=== PATIENT | female | born 1995 | race Caucasian/White ===

== ENCOUNTER 2018-02-08 08:54 | Inpatient (IN) | payer OTHER ==
[~2018-02-08] VITALS: Ht 160 cm; Wt 63.5 kg
[2018-02-08 08:57] VITALS: Ht 160 cm; Wt 63.5 kg
[2018-02-08 10:19] LABS: CALCIUM 8.9 mg/dL (8.5-10.1); CARBON DIOXIDE 22.6 mmol/L (21-32); CHLORIDE SERUM 104 mmol/L (98-107); CREATININE SERUM 0.3 mg/dL (0.6-1.0); GFR1 > 60 mL/min; GLUCOSE SERUM 82 mg/dL (74-106); POTASSIUM SERUM 3.7 mmol/L (3.5-5.1); SODIUM SERUM 138 mmol/L (136-145)
[2018-02-08 10:23] LABS: ALBUMIN 3.7 g/dL (3.4-5.0); ALKALINE PHOSPHATASE 241 U/L (46-116); ALT/SGPT 37 U/L (14-59); AMYLASE 78 U/L (25-115); AST/SGOT 22 U/L (15-37); BILIRUBIN TOTAL 0.4 mg/dL (0.20-1.00); LIPASE 1057 IU/L (73-393); TOTAL PROTEIN, SERUM 8.2 g/dL (6.4-8.2)
[2018-02-08 11:08] LABS: BASOPHIL % 0.4 % (0-2); PLATELET COUNT 206 x10^3mcL (130-400); RED CELL DISTRIBUTION WIDTH 13.9 % (11.5-14.5)
[2018-02-08 12:41] VITALS: BP 117/57
[2018-02-08 13:05] LABS: T3 TOTAL 5.96 ng/mL
[2018-02-08 13:06] LABS: FREE T4 4.71 ng/dL (0.76-1.46)
[2018-02-08 13:09] LABS: FREE THYROXINE INDEX 10.6 ug/dL (1.4-4.5); T4(THYROXINE) 22.6 ug/dL (4.7-13.3)
[2018-02-08 13:27] LABS: CHOLESTEROL/HDL RATIO 2.2; MAGNESIUM 1.8 mg/dL (1.8-2.4); PHOSPHOROUS 3.3 mg/dL (2.5-4.9)
[2018-02-08] MEDS ORDERED: TAPAZOLE10 MG PO (14:43)
[2018-02-08 17:36] VITALS: BP 92/56
[2018-02-08 20:11] VITALS: BP 113/54
[2018-02-08 21:42] VITALS: BP 120/55
[2018-02-09 05:34] VITALS: BP 119/56
[2018-02-09 06:40] LABS: BASOPHIL % 0.3 % (0-2); PLATELET COUNT 194 x10^3mcL (130-400); RED CELL DISTRIBUTION WIDTH 13.1 % (11.5-14.5)
[2018-02-09 07:21] LABS: CALCIUM 9.6 mg/dL (8.5-10.1); CARBON DIOXIDE 18.5 mmol/L (21-32); CHLORIDE SERUM 104 mmol/L (98-107); CREATININE SERUM 0.3 mg/dL (0.6-1.0); GFR1 > 60 mL/min; GLUCOSE SERUM 64 mg/dL (74-106); MAGNESIUM 1.7 mg/dL (1.8-2.4); PHOSPHOROUS 3.9 mg/dL (2.5-4.9); POTASSIUM SERUM 4.1 mmol/L (3.5-5.1); SODIUM SERUM 136 mmol/L (136-145)
[2018-02-09 08:31] LABS: UA SPECIFIC GRAVITY >=1.030 (1.005-1.035); microscopic required? YES; urine erythrocyte 1+ (NEGATIVE)
[2018-02-09 08:39] LABS: AMPHETAMINE QUAL UR NONE DETECTED (See below)
[2018-02-09 10:06] VITALS: BP 118/57
[2018-02-09 18:34] VITALS: BP 130/67
[2018-02-09 21:35] VITALS: BP 119/65
[2018-02-09 22:45] VITALS: BP 115/64
[2018-02-10 05:47] VITALS: BP 112/60
[2018-02-10 06:12] LABS: BASOPHIL % 0.5 % (0-2); PLATELET COUNT 208 x10^3mcL (130-400); RED CELL DISTRIBUTION WIDTH 13.1 % (11.5-14.5)
[2018-02-10 06:47] LABS: ALKALINE PHOSPHATASE 192 U/L (46-116); ALT/SGPT 42 U/L (14-59); AST/SGOT 31 U/L (15-37); BILIRUBIN DIRECT 0.15 mg/dL (0.0-0.2); BILIRUBIN TOTAL 0.54 mg/dL (0.20-1.00); CALCIUM 9.3 mg/dL (8.5-10.1); CARBON DIOXIDE 17.5 mmol/L (21-32); CHLORIDE SERUM 105 mmol/L (98-107); CREATININE SERUM 0.4 mg/dL (0.6-1.0); GFR1 > 60 mL/min; GLUCOSE SERUM 84 mg/dL (74-106); MAGNESIUM 1.6 mg/dL (1.8-2.4); PHOSPHOROUS 4.6 mg/dL (2.5-4.9); POTASSIUM SERUM 3.6 mmol/L (3.5-5.1); SODIUM SERUM 135 mmol/L (136-145); TOTAL PROTEIN, SERUM 7.2 g/dL (6.4-8.2)
[2018-02-10 06:57] LABS: ALBUMIN 3.3 g/dL (3.4-5.0)
[2018-02-10 10:04] VITALS: BP 124/61
[2018-02-10 12:40] VITALS: BP 124/61
== END 2018-02-10 13:35 | disposition home or self-care (01) ==
LOC: ED 08:54 → MU 11:47
PROVIDERS: Emergency Medicine; Family Medicine; Internal Medicine; Internal Medicine Gastroenterology
DX: K80.00 Calculus of gallbladder with acute cholecystitis without obstruction (principal); N17.0 Acute kidney failure with tubular necrosis; K85.10 Biliary acute pancreatitis without necrosis or infection; E05.90 Thyrotoxicosis, unspecified without thyrotoxic crisis or storm; E83.42 Hypomagnesemia; Z53.9 Procedure and treatment not carried out, unspecified reason; R31.9 Hematuria, unspecified; Z68.24 Body mass index [BMI] 24.0-24.9, adult
CPT/HCPCS: 83880; 84439; C9113; J1885; J2405; J7030; Q0092